=== PATIENT | female | born 2000 ===

== ENCOUNTER 2023-10-20 08:00 | Outpatient (CLI) | payer OTHER ==
[2023-10-20 16:42] LABS: BILIRUBIN,URINE NEGATIVE (NEGATIVE); GLUCOSE, URINE (UA) NEGATIVE (NEGATIVE); KETONES,URINE (UA) NEGATIVE (NEGATIVE); LEUKOCYTE ESTERASE, URINE LARGE (NEGATIVE); NITRITE,URINE NEGATIVE (NEGATIVE); OCCULT BLOOD,URINE TRACE-INTA (NEGATIVE); PROTEIN,URINE NEGATIVE (NEGATIVE); UROBILINOGEN,URINE 0.2 (NORMAL) E.U./dL (NORMAL)
[2023-10-20 16:46] LABS: CLARITY,URINE HAZY (CLEAR)
[2023-10-20 16:51] LABS: BACTERIA,URINE Moderate /HPF (None Seen); RBC,URINE 0-5 /HPF (0-5); SQUAMOUS EPITHELIAL CELL,UR MANY Squamous (<= Few); WBC,URINE >25 /HPF (0-5)
== END 2023-10-20 23:59 | disposition home or self-care (01) ==
LOC: LAB.WC 08:00
PROVIDERS: ATTEND Obstetrics & Gynecology
DX: Z34.90 Encounter for supervision of normal pregnancy, unspecified, unspecified trimester (principal)
CPT/HCPCS: 81001; 87086

== ENCOUNTER 2023-11-07 11:45 | Outpatient (CLI) | payer OTHER ==
--- NOTE | 2023-11-08 09:21 | Ultrasound Report ---
PROCEDURE: OB 1st Trimester INDICATIONS: POSITIVE TEST OUTSIDE/PRIOR DATING DATA: Last menstrual period (LMP): 09/02/2023. LMP-based estimated date of delivery (MANSI): 06/08/2024. First dating scan (date and location): 11/07/2023. Estimated date of delivery (MANSI) from first dating scan: 05/31/2024. TECHNIQUE: Real-time scanning was performed of the fetus and maternal pelvic organs, with image documentation. COMPARISON: None. FINDINGS: Intrauterine gestational sac present. Embryo: [place]-rump length measuring 3.63 cm, gestational age 10 weeks 4 days Heart rate: 166 bpm. Other: No perigestational fluid collection. Measurement variability in dating: +/- 4 weeks by LMP, +/- 7 days by mean sac diameter (use before 6 weeks gestation if crown-rump length not able to be measured), +/- 5 days by crown-rump length (6-12 weeks gestation). Maternal organs: Ovaries appear within normal limits. Cervix is closed. IMPRESSION: 1. [place] living intrauterine at 10 weeks 4 days based on today's crown-rump length. 2. No perigestational hemorrhage. Reviewed by: Carlos Manuel Sandoval MD on 11/08/2023 9:20 AM PST Approved by: Carlos Manuel Sandoval MD on 11/08/2023 9:20 AM PST Station ID: [id number]
== END 2023-11-07 11:46 | disposition home or self-care (01) ==
LOC: DI 11:45
PROVIDERS: ATTEND Obstetrics & Gynecology
DX: Z34.91 Encounter for supervision of normal pregnancy, unspecified, first trimester (principal)

== ENCOUNTER 2023-11-17 08:00 | Outpatient (CLI) | payer OTHER ==
[2023-11-17 23:34] LABS: CHLAMYDIA TRACHOMATIS DNA NEGATIVE (NEGATIVE); NEISSERIA GONORRHOEAE DNA NEGATIVE (NEGATIVE); TRICHOMONAS VAGINALIS DNA NEGATIVE (NEGATIVE)
== END 2023-11-17 23:59 | disposition home or self-care (01) ==
LOC: LAB.WC 08:00
PROVIDERS: ATTEND Obstetrics & Gynecology
DX: Z11.3 Encounter for screening for infections with a predominantly sexual mode of transmission (principal)
CPT/HCPCS: 87491; 87591; 87661

== ENCOUNTER 2023-12-15 12:23 | Outpatient (CLI) | payer OTHER ==
[2023-12-15 12:51] LABS: BASOPHILS % (AUTO) 0.2 %; EOSINOPHILS # (AUTO) 0.1 10^3/uL (0.0-0.7); EOSINOPHILS % (AUTO) 1.1 %; HCT - HEMATOCRIT 36.7 % (37.0-47.0); HGB - HEMOGLOBIN 12.3 g/dL (12.0-16.0); LYMPHOCYTES # (AUTO) 1.7 10^3/uL (1.5-3.5); LYMPHOCYTES % (AUTO) 13.3 %; MEAN CORPUSCULAR HEMOGLOBIN 27.6 pg (27.0-31.0); MEAN CORPUSCULAR HGB CONC 33.5 g/dL (32.0-36.0); MEAN CORPUSCULAR VOLUME 82.5 fL (81.0-99.0); MEAN PLATELET VOLUME 9.1 fL (7.9-10.8); MONOCYTES # (AUTO) 0.6 10^3/uL (0.0-1.0); MONOCYTES % (AUTO) 4.6 %; NEUTROPHILS # (AUTO) 9.9 10^3/uL (1.5-6.6); NEUTROPHILS % (AUTO) 80.2 %; PLT - PLATELET COUNT 277 10^3/uL (130-450); RED BLOOD COUNT 4.45 10^6/uL (4.20-5.40); RED CELL DISTRIBUTION WIDTH 12.2 % (12.0-15.0); WHITE BLOOD COUNT 12.4 x10^3/uL (4.8-10.8)
[2023-12-16 05:13] LABS: HBsAG SCREEN Negative (Negative); HIV SCREEN 4TH GENERATION Non Reactive (Non Reactive); RPR Non Reactive (Non Reactive)
[2023-12-16 09:09] LABS: VARICELLA-ZOSTER AB IGG 3113 index (Immune >165)
[2023-12-17 00:08] LABS: HCV AB Non Reactive (Non Reactive)
== END 2023-12-15 12:24 | disposition home or self-care (01) ==
LOC: LAB 12:23
PROVIDERS: ATTEND Obstetrics & Gynecology
DX: Z34.90 Encounter for supervision of normal pregnancy, unspecified, unspecified trimester (principal)
CPT/HCPCS: 36415; 85025; 86592; 86762; 86787; 86803; 86850; 86900; 86901; 87340; 87389

== ENCOUNTER 2024-01-19 16:13 | Outpatient (CLI) | payer OTHER ==
--- NOTE | 2024-01-20 11:14 | Ultrasound Report ---
PROCEDURE: OB Anatomy Scan INDICATIONS: SUPERVISION OF OUTSIDE/PRIOR DATING DATA: Last menstrual period (LMP): 09/02/2023. LMP-based estimated date of delivery (MANSI): 06/08/2024. First dating scan (date and location): 11/07/2023. Estimated date of delivery (MANSI) from first dating scan: 05/31/2024. The below data below was generated using the ultrasound MANSI of 05/31/2024 TECHNIQUE: Real-time scanning was performed of the fetus, with image documentation and biometric measurements. Endovaginal scanning: Not performed. COMPARISON: OB ultrasound 11/07/2023. FINDINGS: General: A single living intrauterine gestation is present. Presentation: Vertex Placenta: Placental position is anterior, without previa. Amniotic fluid index: 13.9 cm, within normal limits for gestational age. Largest pocket 4.7 cm. heart rate: 158 beats per minute. Maternal cervical canal: 4.9 cm long; normal length is 2.5 cm or more. biometrics: Biparietal diameter: 5.23 cm, 21 weeks 6 days. 81st percentile Head circumference: 19.5 cm, 21 weeks 5 days. 73rd percentile. Abdominal circumference: 16.2 cm, 21 weeks 2 days. 53rd percentile. Femur length: 3.8 cm, 22 weeks 2 days. 81st percentile. Estimated gestational age from initial scan: 21 weeks 0 days Composite gestational age from present scan: 21 weeks 6 days Estimated weight and percentile: 456 g, 82nd percentile Measurement variability in biometric dating: +/- 10 days from 12-20 weeks gestation, +/- 2 weeks from 20-30 weeks gestation, +/- 3 weeks at 30 weeks gestation or later. Anatomic survey: Neuro: Ventricles are normal at less than 10 mm. Cisterna magna is normal at 3-11 mm. Cerebellum i s normal in size and morphology. Nuchal skin fold: Normal at less than 6 mm between 14 and 20 weeks gestational age. Face: Nose and lips are normal. Facial profile is felt to be within normal limits. Spine: No evidence for spina bifida. Heart: 4-chambered heart is present, with normal ventricular outflow tracts. Diaphragm: Diaphragm is intact. Stomach: Left-sided stomach is present. Kidneys: No hydronephrosis. Normal is less than 5 mm in 2nd trimester, less than 7 mm in 3rd trimester. Cord: 3 vessel cord has orthotopic insertion. Bladder: Normal in size. Extremities: All 4 extremities are visualized. IMPRESSION: 1. [place] living intrauterine at 21 weeks 6 days based on today's ultrasound. Fetus is i n the 82nd percentile for weight. 2. Normal placenta and amniotic fluid. 3. Normal anatomic survey. Reviewed by: Carlos Manuel Sandoval MD on 01/20/2024 11:13 AM PDT Approved by: Carlos Manuel Sandoval MD on 01/20/2024 11:13 AM PDT Station ID: [id number]
== END 2024-01-19 16:14 | disposition home or self-care (01) ==
LOC: DI 16:13
PROVIDERS: ATTEND Nurse Practitioner
DX: Z34.92 Encounter for supervision of normal pregnancy, unspecified, second trimester (principal)

== ENCOUNTER 2024-03-23 15:24 | Outpatient (CLI) | payer OTHER ==
[2024-03-23 21:40] LABS: BACTERIAL VAGINOSIS DNA NEGATIVE (NEGATIVE); CANDIDA GLABRATA DNA NEGATIVE (NEGATIVE); CANDIDA GROUP DNA POSITIVE (NEGATIVE); CANDIDA KRUSEI DNA NEGATIVE (NEGATIVE); TRICHOMONAS VAGINALIS DNA NEGATIVE (NEGATIVE)
== END 2024-03-23 15:25 | disposition home or self-care (01) ==
LOC: LAB.WC 15:24
PROVIDERS: ATTEND Nurse Practitioner
DX: N89.8 Other specified noninflammatory disorders of vagina (principal)
CPT/HCPCS: 81514

== ENCOUNTER 2024-04-06 00:18 | Outpatient (CLI) | payer OTHER ==
[2024-04-06 00:50] VITALS: BP 109/61
--- NOTE | 2024-04-06 01:43 | PROVIDER PROGRESS NOTE ---
- HPI Chief Complaint: Other (bleeding after intercourse) Current : Current EDU 05/31/24 Gestation 32 Weeks and 1 Days 2 Para 1 Vital Signs Temperature 97.9 F 04/06/24 00:44 Heart Rate 87 04/06/24 00:44 Respiratory Rate 16 04/06/24 00:44 Blood Pressure 109/61 04/06/24 00:44 Temperature 97.9 F 04/06/24 00:44 Heart Rate 87 04/06/24 00:44 Respiratory Rate 16 04/06/24 00:44 Blood Pressure 109/61 04/06/24 00:44 O2 Saturation If not protocol: Oxygen Flow, liters/minute - Exam no distress pelvic: vulva appaers normal, no obvious blood. speculum placed. small bloody discharge. no clots. no lesions. swabs collected. cervix closed and unlabored. - Procedures OB Procedure Performed: NST Diagnosis/Indication for NST: Other (bleeding after sex) NST Procedure: NST Procedure Start Date 04/06/24 Start Time 00:25 Stop Time 00:45 Vibroacoustic Stimulation Used No Patient States Movement Yes Service Date of procedure: 04/06/24 Procedure Details: NST reviewed and reactive. Reactive for of 32 weeks gestation or more. NST tracing contains at least two heart rate accelerations that are at least 15 beats per minute above the baseline rate and lasting at least 15 seconds from onset to return to baseline within a twenty minute period. Findings: not in labor. NST reactive. - Plan Plan: discharge home. reassured.
[2024-04-06 03:57] LABS: BACTERIAL VAGINOSIS DNA NEGATIVE (NEGATIVE); CANDIDA GLABRATA DNA NEGATIVE (NEGATIVE); CANDIDA GROUP DNA POSITIVE (NEGATIVE); CANDIDA KRUSEI DNA NEGATIVE (NEGATIVE); TRICHOMONAS VAGINALIS DNA NEGATIVE (NEGATIVE)
[2024-04-06 04:02] LABS: CHLAMYDIA TRACHOMATIS DNA NEGATIVE (NEGATIVE); NEISSERIA GONORRHOEAE DNA NEGATIVE (NEGATIVE)
== END 2024-04-06 01:42 | disposition home or self-care (01) ==
LOC: WFO 00:18 → FBP 00:19 → WFO 01:42
PROVIDERS: ATTEND Obstetrics & Gynecology
DX: O99.891 Other specified diseases and conditions complicating pregnancy (principal); N93.0 Postcoital and contact bleeding; Z3A.32 32 weeks gestation of pregnancy
CPT/HCPCS: 59025; 81514; 87491; 87591; 87661; 99213

== ENCOUNTER 2024-05-03 08:00 | Outpatient (CLI) | payer OTHER | END 2024-05-03 23:59 | disposition home or self-care (01) | LOC: LAB.WC 08:00 | PROVIDERS: ATTEND Nurse Practitioner | DX: Z36.85 Encounter for antenatal screening for Streptococcus B (principal) | CPT/HCPCS: 87797 ==

== ENCOUNTER 2024-05-07 08:00 | Outpatient (CLI) | payer OTHER ==
[2024-05-07 21:03] LABS: BACTERIAL VAGINOSIS DNA NEGATIVE (NEGATIVE); CANDIDA GLABRATA DNA NEGATIVE (NEGATIVE); CANDIDA GROUP DNA POSITIVE (NEGATIVE); CANDIDA KRUSEI DNA NEGATIVE (NEGATIVE); TRICHOMONAS VAGINALIS DNA NEGATIVE (NEGATIVE)
== END 2024-05-07 23:59 | disposition home or self-care (01) ==
LOC: LAB.WC 08:00
PROVIDERS: ATTEND Nurse Practitioner
DX: N89.8 Other specified noninflammatory disorders of vagina (principal)
CPT/HCPCS: 81514

== ENCOUNTER 2024-05-28 10:06 | Inpatient (IN) | payer OTHER ==
[2024-05-28] MEDS ORDERED: NIFEdipine 10 MG CAPSULE PO PRN (10:56)
[2024-05-28] MEDS ORDERED: TRANEXAMIC ACID IN NACL 1,000 MG/100 ML BAG IV PRN (10:56)
[2024-05-28] MEDS ORDERED: SODIUM CHLORIDE FLUSH 0.9% 10 ML SYRINGE IVP PRN (10:56)
[2024-05-28] MEDS ORDERED: LABETALOL 20 MG/4 ML SYRINGE IVP PRN ×3 (10:56)
[2024-05-28] MEDS ORDERED: TERBUTALINE 1 MG/ML VIAL SUBQ PRN (10:56)
[2024-05-28] MEDS ORDERED: OXYTOCIN 10 UNIT/ML VIAL IM PRN (10:56)
[2024-05-28] MEDS ORDERED: CARBOPROST TROMETHAMINE 250 MCG/ML VIAL IM PRN (10:56)
[2024-05-28] MEDS ORDERED: miSOPROStoL 200 MCG TABLET PR PRN (10:56)
[2024-05-28] MEDS ORDERED: METHYLERGONOVINE 0.2 MG/ML VIAL IM PRN (10:56)
[2024-05-28] MEDS ORDERED: miSOPROStoL 200 MCG TABLET BC PRN (10:56)
[2024-05-28] MEDS ORDERED: fentaNYL 100 MCG/2 ML VIAL IVP PRN (10:56)
[2024-05-28] MEDS ORDERED: hydrALAZINE INJ 20 MG/ML VIAL IVP PRN ×2 (10:56)
[2024-05-28] MEDS ORDERED: LACTATED RINGERS 1,000 ML IV PRN (10:56)
[2024-05-28] MEDS ORDERED: SODIUM CHLORIDE FLUSH 0.9% 10 ML SYRINGE IVP SCH (11:00)
[2024-05-28 11:07] LABS: BASOPHILS % (AUTO) 0.1 %; EOSINOPHILS # (AUTO) 0.1 10^3/uL (0.0-0.7); EOSINOPHILS % (AUTO) 0.5 %; HCT - HEMATOCRIT 38.8 % (37.0-47.0); LYMPHOCYTES # (AUTO) 1.5 10^3/uL (1.5-3.5); LYMPHOCYTES % (AUTO) 9.7 %; MEAN CORPUSCULAR HEMOGLOBIN 28.6 pg (27.0-31.0); MEAN CORPUSCULAR HGB CONC 33.5 g/dL (32.0-36.0); MEAN CORPUSCULAR VOLUME 85.5 fL (81.0-99.0); MEAN PLATELET VOLUME 9.5 fL (7.9-10.8); MONOCYTES # (AUTO) 1.2 10^3/uL (0.0-1.0); MONOCYTES % (AUTO) 7.7 %; NEUTROPHILS # (AUTO) 12.5 10^3/uL (1.5-6.6); NEUTROPHILS % (AUTO) 81.4 %; PLT - PLATELET COUNT 225 10^3/uL (130-450); RED BLOOD COUNT 4.54 10^6/uL (4.20-5.40); RED CELL DISTRIBUTION WIDTH 13.2 % (12.0-15.0); WHITE BLOOD COUNT 15.3 x10^3/uL (4.8-10.8)
[2024-05-28 11:20] LABS: ALBUMIN 3.8 g/dL (3.2-5.5); ALBUMIN/GLOBULIN RATIO 1.3 (1.0-2.2); BILIRUBIN,TOTAL 0.7 mg/dL (0.2-1.0); CALCIUM 8.8 mg/dL (8.5-10.3); CREATININE 0.6 mg/dL (0.6-1.3); POTASSIUM 3.6 mmol/L (3.5-4.5); TOTAL PROTEIN 6.7 g/dL (6.4-8.9)
[2024-05-28] MEDS: lidocaine 1% 20 ML MDV ID PRN (12:15)
[2024-05-28] MEDS: OXYTOCIN/SODIUM CHLORIDE 500 ML IV PRN (12:19)
--- NOTE | 2024-05-28 12:41 | DELIVERY NOTE ---
<Rosie Sorensen - Last Filed: 05/28/24 17:47> Delivery Note - Labor Labor: positive: Spontaneous - Infant Delivery Method Delivery Method: positive: Spontaneous vaginal delivery - Presentation Presentation: positive: Vertex, OA - occiput anterior - Nuchal Cord Nuchal Cord: positive: Present - Anesthetic Anesthetic Type: Anesthetic: positive: Lidocaine - 1% plain - Amniotic Fluid Description Amniotic Fluid Description: positive: Clear - Episiotomy Type Episiotomy Type: positive: None - Laceration Laceration: positive: 1st degree - Suture Suture Type: positive: Vicryl Suture Size: positive: 3-0 - Delivery Outcome Delivery Outcome: positive: Livebirth - [place]: positive: Placed in direct skin contact with mother, Bulb syringe, Stimulated, [place] used, Warmer used sex: positive: Male - Cord Cord: positive: 3 vessels - Placenta Placenta: positive: Intact - Estimated Blood Loss Estimated Blood Loss (in cc): 350 - Post Delivery Events Post Delivery Events: positive: No post delivery events - Delivery Comments (Free Text/Narrative) Delivery Comments (Free Text/Narrative): This 23 -year-old, @ 39+4 weeks gestation by 10+4 week ultrasound/ LMP presented @ approximately 10:00 on 05/28/2024 in active labor and in good condition. Cervix was 6c. Vertex presentation confirmed by alejandra's upon presentation. GBS negative. FHR pattern demonstrated 150's baseline in a category I prior to second stage. Normal labor course. Unmedicated labor. AROM occurred @ 1130 (clear). She then progressed to complete/complete @ 1205 and second stage began. : Normal spontaneous vaginal delivery of a viable male infant on 05/28/2025 @ 1214. Delivered through Nuchal x one. The was placed on maternal abdomen, stimulated, dried and placed skin to skin. Apgars 6, 7 & 8 @ 1, 5 & 10 minutes. The umbilical cord was allowed to stop pulsating at which time it was doubly clamped by delivering provider and cut by FOB. 3VC. Cord blood was obtained. Fundal massage and gently cord traction applied for active management of the third stage, placenta delivered spontaneously and intact and appeared normal @ 1217. EBL 350cc. Placenta was WAS NOT sent to pathology. Pitocin administered via IV for hemostasis and allowed to run freely. Uterine massage was performed until uterus was deemed firm. weight: 3,283g First-degree midline laceration largely in the area of previous scar tissue and repaired with 3-0 vicryl rapide, in standard sterile fashion under 1% lidocaine. Upon re-inspection the patient was hemostatic. Uterus again massaged and found to be firm. Needle and sponge counts were correct. Uterine fundus firm and there is no excessive bleeding. Tissues well approximated. Skin to skin initiated. Family bonding well. Both mother and baby are in stable condition. Patient verbalized consent for my participation in her delivery in my role as Student Nurse Telephone Repairer. JOSE MIGUEL Tobar, Student Nurse Telephone Repairer <Martha Hutson - Last Filed: 05/28/24 20:50> Delivery Note - Delivery Comments (Free Text/Narrative) Delivery Comments (Free Text/Narrative): I was present for the patient's entire labor in the hospital and was present for delivery with Rosie. I agree with the above documentation. Martha Hutson MD
--- NOTE | 2024-05-28 12:42 | HISTORY & PHYSICAL EXAMINATION ---
Admit History - Visit Reason Visit Reason: Contractions - : 2 Parity: 1 Smoking Status: Never smoker - Mother's Labs Mother's Blood Type: positive: A Mother's RH: positive: Negative GBS: positive: Group B Step Negative Rubella Status: positive: Immune - Other Maternal History Other Maternal History: HPI: This 23 yo @ 39+4 weeks by LMP and confirmed by 10+4 week ultrasound presented to L&D in active labor. Upon arrival her cervix was 6cm, intact and vertex presentation confirmed by exam. Her contractions started about 7:30 this morning and became more regular and more intense prior to her arrival on the unit @ about 10:00. She has been a patient of [facility] for the duration of her which has remained uncomplicated. No significant complaints outside of labor to include headache, visual changes or right upper quadrant abdominal pain, significant nausea/vomiting. Denies urinary urgency or dysuria. As discussed in clinic, in the event of an emergency, accepts the administration of blood products. ROS: All other symptoms reviewed and were negative except per HPI. Recent BP: 113/73 Labs: Admission H&H 13.0/ 38.8% Last u/s EFW: FAS @ 21 weeks: 82% Total maternal weight gain: 7.6# OB Hx: G1: 10/17/2022 @ 39.6 Male 8# 13oz "Fredy" G2:current Medical Hx: No significant Surgical Hx: None Social Hx: Monogamous with male partner. Denies current use of alcohol or toba account executive agribusiness, marijuana or other recreational drugs. Reports that she is safe in current relationship. Family Hx: Significant family hx of alcoholism, hypertension, and breast cancer. Denies family history of congenital anomalies, Cystic Fibrosis or chromosomal abnormalities Allergies: Avocado Medications: LDASA, vitamin, PRN Tylenol LMP: 09/02/2023 MANSI by LMP: 06/08/2024 Initial US Date 11/07/2023, US Age 10 weeks 4 days, MANSI by ultrasound: 05/31/2024 Final MANSI: 05/31/2024 by 10-week ultrasound Obesity: BMI of 37.5: anticipated weight gain 11 to 20 pounds. Started aspirin 81 mg at 12 weeks. Pre- Weight:224.8 BMI: 37.54 Blood type: A- Rhogam given 03/23 Rh: negative Antibody: negative CBC: PLT 277 HCT 36.7 HGB 12.3 RUB: immune VZV: immune HBsAg: negative HepC: N-R RPR/AB-EIA: N-R HIV: N-R PAP: 12/14 normal GC/CT: 11/16 negative HSV:denies in self and partner Genetic testing: Declines as of 12/14 Covid: out of season Flu:Declines FAS: 01/19/2024 Placenta: Anterior Cord: 3VC MARIOLA: 13.9cm EFW: 456g; 82nd%tile 50gm OGCT: 135 3HR GTT: TDAP:03/23 Breast Pump:03/23 RHogam:03/23 3rd trimester PLT 272 HGB 11.8 HCT 35.4 RPR: NR ANTIBODY SCREEN: 02/14/2024 NEGATIVE GBS: 05/03 Negative Delivery plan: Contraception:Does not want OCPs. Consider natural family planning. Physical exam: Normocephalic, atraumatic Abdomen gravid, soft, nontender. EFW 3800 FHR baseline 150's , moderate variability, + accelerations, no significant decelerations Contractions regularly SVE 6cm upon arrival to L&D, vertex, intact membranes Bilateral LE's no edema Mood is good. Assessment: 23 yo @ 39+4 weeks gestation by 10+4 wk U/S active labor FHR 150's Cat 1 GBS NEG Plan: Admit to [facility] for Expectant management Continuous monitoring/ Intermittent heart rate auscultation. Perfecto LOPEZ. Support unmedicated labor per maternal request. Patient verbally consents to my participation in her care in my role as a student nurse branch assistant. JOSE MIGUEL Tobar, Student Nurse Headlight Assembler (Rosie Sorensen) - HPI Current EDU 05/31/24 Gestation 39 Weeks and 4 Days 2 Vital Signs Temperature 97.8 F 05/28/24 10:53 Heart Rate 93 05/28/24 10:53 Respiratory Rate 18 05/28/24 10:53 Blood Pressure 118/78 05/28/24 10:53 Temperature 208.0 F H 05/28/24 13:00 Heart Rate 98 05/28/24 14:00 Respiratory Rate 17 05/28/24 14:00 Blood Pressure 113/73 05/28/24 14:00 O2 Saturation If not protocol: Oxygen Flow, liters/minute - NST Procedure NST Procedure Start Time 00:25 Stop Time 00:45 Physical - Abdominal Exam Vital Signs: Temp Pulse Resp BP Pulse Ox O2 Flow Rate 208.0 F H 98 17 113/73 05/28/24 13:00 05/28/24 14:00 05/28/24 14:00 05/28/24 14:00 Plan for Labor - Plan For Labor I expect patient to be DC'd or transferred within 96 hours.: Yes - Plan For Labor Plan for Labor: I have seen and examined patient along with Rosie and agree with above. Martha Hutson MD (Martha Hutson)
[2024-05-28] MEDS ORDERED: WITCH HAZEL/GLYCERIN 1 PAD TOP PRN (12:49)
[2024-05-28] MEDS ORDERED: HYDROCORTISONE 1% CREAM 28 GM TUBE PR PRN (12:49)
[2024-05-28] MEDS: IBUPROFEN 800 MG TABLET PO SCH (13:37)
[2024-05-28] MEDS: ACETAMINOPHEN 500 MG TABLET PO SCH (13:38)
--- NOTE | 2024-05-28 16:39 | PHARMACY PROGRESS NOTE ---
- Best Possible Medication History Admit Date and Time: 05/28/24 1056 Processed by: Pharmacy Secondary Source(s): Caregiver (PER SURESCRIPTS RECORDS, NEO RECORDS, AND RN), Insurance records As the person ultimately responsible for medication therapy, providers are able to order a medication from an existing home medication list in [facility] via the "Reconcile Routine" prior to Confirmation of that medication by customer support technician. Such practice is discouraged except when the physician, in their clinical judgment, deems that a medical need exists for a medication without regard to previous use.
[2024-05-28] MEDS: RHO(D) IMMUNE GLOBULIN 300 MCG SYRINGE IM ONE (22:00)
[2024-05-29 10:20] VITALS: BP 96/59; O2SAT 98
--- NOTE | 2024-05-29 10:31 | DISCHARGE SUMMARY ---
Discharge Summary Code Status: Attempt Resuscitation Condition at Discharge: Good Discharge Disposition: 01 Home, Self Care - HOSPITAL COURSE Hospital Course: Date of Admission: 05/28/2024 Date of Discharge: 05/29/2024 Diagnosis on admission: 1. 23 yo @ 39+4 weeks gestation by 10+4 wk U/S 2. active labor 3. FHR 150's Cat 1 4. GBS NEG 5. RH negative Diagnosis on Discharge 1. 23 yo s/p 05/28/2024 @ 2. PPD #1 3. Exclusively (now pumping) Brief History: She is a patient of [facility] who presented on 05/28/2024 @ 10:00 with complaints of contractions. She was found to be michael regularly and quickly progressed from 6cm to complete. Labor progressed naturally without medication pain management. She spontaneously delivered a viable male apgars 6, 7 & 8 at 1, 5 & 10 minutes respectively 05/28/2024 @ 1214. EBL 350 ml. First degree perineal laceration with repair. weight: 3,283g She has been doing well in her course. She is ambulating and tolerating a regular diet. She is urinating without difficulty and her lochia is normal. Her pain is well controlled without narcotic management. She will be discharged to home today on day 1 and encouraged IBU, Tylenol and stool softeners PRN. She intends to follow up with [facility] in 1 week for telehealth. She has been given precautions to call if she has any new or worsening sx such as fevers, chills, abdominal pain, increasing bleeding, or foul smelling vaginal lochia. preeclamptic precautions reviewed as well. She will likely be discharged to boarder status as baby is receiving respiratory support in the nursery at this time. VZV: immune Rubella: immune Blood Type: A-, (Baby blood type: A+) Rhogam received 05/28/2024 @ 2200 JOSE MIGUEL Tobar, Student Nurse Sap Hana Developer - ALLERGIES Allergies/Adverse Reactions: Allergies Allergy/AdvReac Type Severity Reaction Status Date / Time [place]ac[place] Allergy Nausea Uncoded 05/28/24 14:48 - MEDICATIONS Home Medications: Ambulatory Orders Medication Instructions Recorded Confirmed Acetaminophen [Tylenol] 1,000 mg PO Q4-6H PRN 05/28/24 05/28/24 Aspirin [[place]] 1 tab ORAL DAILY 05/28/24 05/28/24 147/Iron/Folic Acid 1 tab ORAL DAILY 05/28/24 05/28/24 [Ziphex Tablet] - PHYSICAL EXAM AT DISCHARGE General Appearance: positive: No acute distress Eyes Bilateral: positive: Normal inspection Cardiovascular: positive: Regular rate & rhythm Peripheral Pulses: positive: 2+ Abdomen: positive: Non-tender Back: positive: Nml inspection Skin: positive: Color nml - LABS Result Diagrams: 05/28/24 10:40 05/28/24 10:40 - QUALITY (Female Hip Fx Only) Was patient sent home on osteoporosis medication?: No - TIME SPENT Time Spent in Discharge (Minutes): 25
--- NOTE | 2024-05-29 11:55 | Discharge Plan ---
Discharge Plan Problem Reviewed?: Yes Disposition: Home, Self Care Condition: Good Diet: Regular Activity Restrictions: No Restrictions Shower Restrictions: No Driving Restrictions: No Weight Bearing: Full Weight Instruction Topics: Breastfeed Holds, Self Care, Nutrition , Vaginal No Smoking: If you smoke, Please STOP! Call for help. Follow-up with: Rosie Sorensen ARNP [Provider Admit Priv/Credential] -
--- NOTE | 2024-05-29 16:06 | Labor Flowsheet ---
Labor Flowsheet Datetime Report Generated by CPN: 05/29/2024 16:06 Datetime: 05/29/2024 09:40 VITAL SIGNS NBP Sys/Snehal/Mean (mmHg): 96 : 55 : 65 Pulse: 83 SpO2 (%): 98 COMMUNICATION LaborFlag: Labor Datetime: 05/28/2024 12:32 VAGINAL EXAM Membranes Ruptured Date/Time: 05/28/2024 11:30 Membranes Rupture Method: Artificial Amniotic Fluid Color: Clear Amniotic Fluid Amount: Large Amniotic Fluid Odor: Normal Datetime: 05/28/2024 12:10 UTERINE ACTIVITY Monitor Mode: External Monitor Interventions for UA: [place] Adjusted Frequency (min): 1-3 Quality: Strong Duration (sec): 60-90 Pattern: Normal: <= 5 Contractions in 10 Minutes Resting Tone (Palpate): Relaxed ASSESSMENT A Monitor Mode: External US Monitor Interventions for FHR: Ultrasound Adjusted FHR Baseline Rate : 150 FHR Baseline Changes: No Baseline Change Variability: Moderate 6-25 bpm Accelerations: None Decelerations: Early Actions for Decelerations: Sterile Vaginal Exam; Provider Notified Comments: pushing Datetime: 05/28/2024 11:37 Patient Position/Activity: Knee Chest Datetime: 05/28/2024 11:30 Category: Category I Datetime: 05/28/2024 11:23 Patient Care Comments: out of tub Datetime: 05/28/2024 11:00 ASSESSMENT C Accelerations: 15X15 Datetime: 05/28/2024 10:40 PATIENT CARE IV/Blood Work: IV Started; Labs Drawn with IV Start Datetime: 05/28/2024 10:10 Stage of : Labor
== END 2024-05-29 12:00 | disposition home or self-care (01) | DRG 807 ==
LOC: FBP 10:06 → WFO 10:06 → FBP 10:56
PROVIDERS: ADMIT Obstetrics & Gynecology; ATTEND Obstetrics & Gynecology
PROC: 10E0XZZ Delivery of Products of Conception, External Approach (ICD-10-PCS; principal; 2024-05-28)
PROC: 0HQ9XZZ Repair Perineum Skin, External Approach (ICD-10-PCS; 2024-05-28)
DX: O70.0 First degree perineal laceration during delivery (principal); Z37.0 Single live birth; Z3A.39 39 weeks gestation of pregnancy; O99.214 Obesity complicating childbirth
CPT/HCPCS: 36415; 59409; 80053; 83033; 85025; 86850; 86900; 86901; A9270; J7120